=== PATIENT | female | born 1985 | race Caucasian/White ===

== ENCOUNTER 2016-05-06 11:56 | Day surgery (SDC) | payer OTHER ==
[2016-05-06] VITALS (13 sets, daily range): BP systolic 81–168; BP diastolic 58–101; PULSE 70–96; RESP 16–22; O2SAT 96–100
[~2016-05-06] VITALS: Ht 165.1 cm; Wt 105.9 kg
[~2016-05-06 11:56] MED LIST: LEVO200T6 PO; OMEP40CA36 PO; SERT100T PO; TRIA1TAB3 PO
--- NOTE | 2016-05-06 12:24 | ED.REPORT ---
HPI-General Illness Date of Service May 06, 2016 ED Provider: Dixon Anderson MD Pt is a 5 week 30 y/o female w/ a hx of , HTN, Grave's disease, presenting to the ED c/o stabbing RLQ abdominal pain with radiation to the vagina onset today. The patient had an transvaginal US yesterday but they were unable to visualize the fetus. The patient's OB noticed that she had unstable HCG levels and was concerned for an ectopic . She had a tubal ligation in 2003 and a reversal in 2011. She denies N/V/D, fever, chills, CP, SOB. Last meal: cheeseburger at 12:00 Nursing Notes Stated Complaint: ABDOMINAL PAIN Chief Complaint: Female Abdominal Pain Nursing Notes Reviewed: Yes Allergies: Coded Allergies: lamotrigine (Verified Allergy, Severe, rash, 05/06/16) Penicillins (Verified Allergy, Mild, HIVES, 08/31/12) Sulfa (Sulfonamide Antibiotics) (Verified Adverse Reaction, Severe, vomitting, 12/29/15) morphine (Verified Adverse Reaction, Severe, rebound headache, 05/06/16) hydrocodone bitartrate (Verified Adverse Reaction, Intermediate, REBOUND HEADACHE, 08/31/12) Scheduled Levothyroxine (Levothyroxine) 200 Mcg Tablet 200 MCG PO DAILY Omeprazole (Omeprazole) 40 Mg Capsule.dr 40 MG PO DAILY Sertraline HCl (Zoloft) 100 Mg Tablet 100 MG PO DAILY Triamterene/HCTZ 37.5-25 mg (Triamterene/HCTZ 37.5-25 mg) 1 Each Tablet 1 TABLET PO DAILY General Time Seen by MD: 12:16 Chief Complaint Abdominal pain Hx Obtained From: Patient Arrived By: Walk-in Sudden in Onset?: Yes Symptom Duration: Since onset Location: : Abdomen Quality: Painful Severity: Current: Moderate Severity: Maximum: Moderate Past Medical History Past Medical History Hx of migraines Grave's disease Hypertension Past Surgical History x3 Tubal Ligation Tubal Ligation Reversal Family History unknown: adopted Smoking History Never Smoker Social History Alcohol Use: Denies alcohol use Drug Use: Denies drug use Occupation lives with boyfriend, work at [employer] 02/26/2016 Ambulatory Status Independent Review of Systems Full Review of Systems Constitutional: Denies: Chills, Fever GI: Reports: Abdominal pain, Denies: Nausea, Vomiting Complete sys rev & neg: except as marked. Physical Exam Vital Signs Vital Signs Date Time Temp Pulse Resp B/P Pulse Ox O2 Delivery O2 Flow Rate FiO2 05/06/16 13:36 36.4 77 20 143/75 99 Room Air 05/06/16 12:05 36.1 96 16 168/101 100 Room Air Initial VS: Reviewed, Vital signs abnormal Head / Eyes: Atraumatic, Normocephalic, PERRL ENT: Mucous membranes moist, Conjunctiva normal, No scleral icterus Neck: Supple, Full range of motion Respiratory: Breath sounds normal, Clear to auscultation, No respiratory distress Cardiovascular: Regular rate & rhythm, Heart sounds normal, Intact distal pulses Extremities: Vascular intact, Neuro intact, No swelling, No tenderness Skin: Warm, Dry, No cyanosis Neurologic: Alert, Oriented, Nonfocal Psychiatric: Mood/affect normal, Behavior normal, Normal thought content General/Constitutional: Awake, Alert, Cooperative, Not toxic appearing Abdomen: Atraumatic, Soft, No distention, No palpable mass Tenderness/Guarding/Rebound: Positive: Rebound localized (RLQ), Tender RLQ... ( Moderate) Interpretation & Diagnostics Lab Results Interpretation Result Diagram: 05/06/16 1236 05/06/16 1236 Test 05/06/16 12:35 05/06/16 12:36 Urine Color Straw (YELLOW) Urine Appearance Hazy (CLEAR,HAZY) Urine pH 6.0 (5.0-8.0) Urine Specific [place] 1.020 (1.003-1.035) Urine Protein Negativemg/dL (NEG,TRACE) Urine Glucose (UA) Negativemg/dL (NEGATIVE) Urine Ketones Negativemg/dL (NEGATIVE) Urine Occult Blood Negative (NEGATIVE) Urine Nitrite Positive (NEGATIVE) Urine Bilirubin Negative (NEGATIVE) Urine Urobilinogen Normalmg/dL (NORMAL) Urine Leukocyte Esterase Negative (NEGATIVE) Urine RBC 0-2/hpf (0-2) Urine WBC 0-5/hpf (0-5) Urine Epithelial Cells Occasional/hpf (NONE-MOD) Urine Crystals None seen (NONE SEEN) Urine Bacteria Many/hpf (NONE-FEW) Urine Hyaline Casts None/lpf (NONE) Urine Granular Casts None seen (NONE SEEN) Urine Waxy Casts None seen (NONE SEEN) Urine Red Blood Cell Casts None seen (NONE SEEN) Urine White Blood Cell Casts None seen (NONE SEEN) Urine Mucus None seen (None Seen) Urine Trichomonas None seen (NONE SEEN) Urine Yeast None (NONE SEEN) Urinalysis Comment None Urine Culture Reflexed Indicated Hold White Top Tube Received (Received) White Blood Count 12.1th/mm3 (3.8-10.1) Red Blood Count 4.90mil/mm3 (3.90-5.20) Hemoglobin 13.1g/dL (12.0-15.6) Hematocrit 40.6% (35.0-46.0) Mean Corpuscular Volume 82.9fL (81-100) Mean Corpuscular Hemoglobin 26.7pg (27.0-35.0) Mean Corpuscular Hemoglobin Concent 32.3% (32.0-37.0) Red Cell Distribution Width 14.9% (12.3-15.4) Platelet Count 314bil/L (150-400) Sodium Level 137mEq/L (134-144) Potassium Level 3.9mEq/L (3.5-5.2) Chloride Level 100mEq/L (97-108) Carbon Dioxide Level 24mmol/L (18-29) Blood Urea Nitrogen 14mg/dL (6-20) Creatinine 0.55mg/dL (0.57-1.00) Estimat Glomerular Filtration Rate 183mL/min (>59) Glucose Level 111mg/dL (60-99) Calcium Level 9.0mg/dL (8.5-10.1) Total Bilirubin 0.2mg/dL (0.0-1.2) Aspartate Amino Transf (AST/SGOT) 25U/L (0-50) Alanine Aminotransferase (ALT/SGPT) 26U/L (0-32) Alkaline Phosphatase 80U/L (25-150) Total Protein 7.2g/dL (6.4-8.4) Albumin 3.9g/dL (3.4-5.0) HCG Beta Subunit 1530mIU/mL Re-Eval/Medical Decision Med Decision/Clinical Course Pt is a 5 week 30 y/o female w/ a hx of , HTN, Grave's disease, presenting to the ED c/o stabbing RLQ abdominal pain with radiation to the vagina onset today. The patient had an transvaginal US yesterday but they were unable to visualize the fetus. Upon arrival the patient is afebrile and hemodynamically stable. 2 large-bore IVs were obtained and blood was sent for type and screen. Labs notable as below: CBC: Leukocytosis of 12.1, HCT of 40.1 CMP: HCG of 1530 which is decreased from prior in the day, unremarkable Rh+ Transvaginal ultrasound obtained as below: 1. Thickened endometrial complex with trace amount of endometrial fluid and a 2 mm cystic structure. Although findings may be related to a very early intrauterine gestation, decidual cast from an ectopic cannot be excluded. 2. Complex right adnexal mass measuring up to 5.5 cm with a small amount of hemorrhagic-appearing free fluid within the pelvis. Ectopic cannot be excluded and close clinical correlation is recommended. Patient discussed with TRADE CLERK. At this time high suspicion for possible ectopic . They would like to take the patient directly to the operating room for explortatory laparotomy. The patient was transferred in stable condition to the care of TRADE CLERK. Acute appendicitis/ovarian torsion remains a possibility as well at this time though overall clinical picture most concerning for ectopic . Time of Eval: 13:37 Re-Evaluation/Progress Note: Pt rechecked. Pt informed of need for admission. Pt understands and agrees with plan for admission. All questions addressed. Consultation : Referral / Consult Name: Amina French MD Call Returned at: 13:33 Circulation Director: Will see patient, Agrees with eval, Agrees with plan, Accepts admit Note: Consulted with the patient's OB in person. Recommends admit for possible exploratory laparoscopy if ectopic is not visible on ultrasound as it was not yesterday. Counseled Regarding: Diagnosis, Lab results, Need for admission Discharge & Departure Primary Impression: Ectopic Additional Impression: Right lower quadrant abdominal pain Disposition: ADMITTED TO HOSPITAL Discharge Condition All VS Reviewed: Yes Condition: Stable Referrals: Amina French MD (PCP) Crit Care Except Billable Proc Time Spent: 75-104 minutes Services Performed: Patient management by me, Time spent at bedside, Reviewing test results, Reviewing imaging, Discussing patient care, Documentation in record, Time with fam/surrogate Scribe Attestation Portions of this note were transcribed by Steve Quick. IDr. Anderson personally performed the history, physical exam and medical decision-making; I reviewed and confirmed the accuracy of the information in the transcribed note. Signed by Tanya Shelley, 05/06/16 1330 copies to: Amina French MD, Beck O MD May 06, 2016 12:23 STEVE QUICK May 06, 2016 12:42
[2016-05-06] MEDS ORDERED: 0.9% Sodium Chloride 1,000 ML IV ONE (12:39)
[2016-05-06 12:55] LABS: Mean Corpuscular Hemoglobin 26.7 pg (27.0-35.0); Mean Corpuscular Volume 82.9 fL (81-100)
[2016-05-06 13:54] LABS: APPEARANCE,URINE HAZY (CLEAR,HAZY); COLOR,URINE STRAW (YELLOW); OCCULT BLOOD,URINE NEGATIVE (NEGATIVE); UROBILINOGEN,URINE NORMAL (NORMAL)
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
[2016-05-06] MEDS ORDERED: fentaNYL-PF 50 mCg/mL 2 mL Inj ONE ×2 (14:22→17:01)
[2016-05-06] MEDS ORDERED: Dexamethasone 4 mg/mL Inj ONE (14:22)
[2016-05-06] MEDS ORDERED: Ondansetron 2 mg/mL 2 mL Inj ONE (14:22)
[2016-05-06] MEDS ORDERED: Propofol 10,000 mCg/mL 20 mL Inj ONE (14:22)
[2016-05-06] MEDS ORDERED: MetoCLOpramide 5 mg/mL 2 mL Inj ONE (14:22)
[2016-05-06] MEDS ORDERED: Rocuronium 10 mg/mL 5 mL Inj ONE (14:22)
[2016-05-06] MEDS ORDERED: Glycopyrrolate 0.2 mg/mL 5 mL Inj ONE (14:22)
[2016-05-06] MEDS ORDERED: Neostigmine 1 mg/mL 5 mL Inj ONE (14:22)
[2016-05-06] MEDS ORDERED: DEXTROSE 5% IV STA (14:31)
[2016-05-06] MEDS ORDERED: CEFAZOLIN IV STA (14:31)
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
[2016-05-06] MEDS ORDERED: Lactated Ringer's 500 ML IV PRN (14:33)
[2016-05-06] MEDS ORDERED: Dexamethasone 4 mg/mL Inj IVPUSH PRN (14:35)
[2016-05-06] MEDS ORDERED: Ondansetron 2 mg/mL 2 mL Inj IVPUSH PRN ×2 (14:35→17:15)
[2016-05-06] MEDS ORDERED: MetoCLOpramide 5 mg/mL 2 mL Inj IVPUSH PRN (14:35)
[2016-05-06] MEDS ORDERED: CeFAZolin Inj 3 GM in IV Premix IV ONE (14:35)
[2016-05-06] MEDS ORDERED: Phenylephrine 10,000 mCg/mL Inj IVPUSH PRN (14:35)
[2016-05-06] MEDS ORDERED: EPHEDrine Sulfate 50 mg/mL Inj IVPUSH PRN (14:35)
[2016-05-06] MEDS ORDERED: Lactated Ringer's 1,000 ML IV ONE (14:37)
[2016-05-06] MEDS ORDERED: Bupivacaine-MPF 0.5% W/EPI 30 mL Inj INFILTRATE ONE (15:27)
--- NOTE | 2016-05-06 16:10 | DRSVH ---
PROCEDURE: US PELVIC SONOGRAM + TRANSVAGINAL SONOGRAM INDICATIONS: Ectopic? TECHNIQUE: Real-time scanning was performed of the pelvic organs, with image documentation. Additio nal endovaginal scanning was necessary due to incomplete visualization of the adnexal and endometrial structures by transabdominal scanning. COMPARISON: [facility], US, US PELVIC+TRANSVAG, 05/05/2016, 8:12. FINDINGS: (Orthogonal measurements) Uterus size: 8.72 cm, 5.09 cm, 6.06 cm Endometrium thickness: 1.71 cm Right ovary size: No identified Left ovary size: 3.08 cm, 2.07 cm, 1.83 cm Transabdominal Scanning: Limited scanning through the kidneys shows no hydronephrosis. No pathologi c free abdominal or pelvic fluid. Endovaginal Scanning: Uterus: Uterus is normal in size and appearance. Endometrium is thickened. Trace endometrial fluid redemonstrated. A 2 mm cystic structure is seen on today's exam. Posterior subserosal fibroid alva uring roughly 2.2 cm. Ovaries: Normal left ovary. Complex mass within the right adnexa measuring roughly 5.5 x 4.9 cm. T here is a small amount of hemorrhagic-appearing free fluid within the pelvis. IMPRESSION: 1. Thickened endometrial complex with trace amount of endometrial fluid and a 2 mm cystic structure. Although findings may be related to a very early intrauterine gestation, decidual cast from an ecto pic cannot be excluded. 2. Complex right adnexal mass measuring up to 5.5 cm with a small amount of hemorrhagic-appearing fr ee fluid within the pelvis. Ectopic cannot be excluded and close clinical correlation is r ecommended. Dictated by: Jm Dickerson RRA Interpreted: Negrita Sen MD on 05/06/2016 at 14:47 Transcribed by: STEPHANIE on 05/06/2016 at 19:10 Approved by: Negrita Sen MD, PhD on 05/06/2016 at 16:45
[2016-05-06] MEDS: Lactated Ringer's 1,000 ML IV SCH ×2 (16:34→17:32)
[2016-05-06] MEDS ORDERED: Bupivacaine 0.5%/EPI 50 mL Inj INFILTRATE ONE (16:41)
--- NOTE | 2016-05-06 17:11 | PCM.SURGOP ---
Surgical Operative Report Date of Service: May 06, 2016 Pre Operative Diagnosis Ectopic Post Operative Diagnosis 1. Right Fallopian Tube Ectopic 2. Dense pelvic and abdominal adhesions 3. Hemoperitoneum Procedure: 1. Laparoscopic right salpingectomy 2. Evacuation of hemoperitoneum 3. Lysis of adhesions Surgeon and [employer]: Surgeon: Amina French MD Assistants: Maddie Reyes was necessary for this procedure to help with exposure and to complete the procedure. Indication for Procedure Patient is a 30-year-old 6 para 4 with a history of a tubal reversal procedure, 3 previous deliveries with inappropriately rising quantitative hCG levels and an ultrasound showing no intrauterine . She presents to the ER with sudden onset of severe right lower quadrant pain. Findings: Intraoperative findings showing a moderate sized hemoperitoneum with a large amount of blood clots surrounding the fragmented right fallopian tube and ovary. There were dense omental adhesions along the anterior abdominal wall extending down to the umbilicus over to the right pelvic sidewall. There were dense adhesions of the bladder and peritoneum to the lower uterine segment. In addition there were more dense adhesions of the left fallopian tube and ovary to the sigmoid colon. The left fallopian tube did not appear to be attached to the cornual region and was torsed and involved in dense pelvic adhesions. The posterior cul-de-sac was free of any adhesions. The upper abdomen appeared to be free of adhesions with normal-appearing appendix and liver. Procedure Details Patient was taken to the operating room where her general anesthesia was obtained without difficulty. She was placed in the lithotomy position in the [facility] and prepared and draped in normal sterile fashion. The umbilicus was injected with 10 mL's of 0.5% Marcaine with epinephrine. A varies needle was inserted and the base the patient's umbilicus and a needle aspirate and water drop test were negative and confirmatory respectively. A pneumoperitoneum was obtained with CO2 gas to a pressure of 15 mmHg. A 5 mm skin incision was made at the base patient umbilicus and a 5 mm Applied balloon trocar was inserted directly into the patient's peritoneal cavity using the Visiport function of this trocar. At this point the above-noted findings were appreciated. A left lower quadrant port site was then marked off injected with 0.5% Marcaine with epinephrine. And a 5 mm blunt trocar was inserted under direct visualization. A right lower quadrant port site was marked off and an 11 mm Applied balloon trocar was inserted under direct visualization. This trocar site was difficult to see secondary to omental adhesions. The patient was then placed in Trendelenburg and the hemoperitoneum was evacuated. The right fragments of fallopian tube and clot were removed with a Thunderbeat cautery device. Some of the pelvic adhesions surrounding the ovary were taken down with a Thunderbeat cautery device to help visualize the ovary and posterior cul-de-sac. Some omental adhesions were taken down anteriorly surrounding the umbilical port to help with visualization. The remaining surveyed abdomen was noted as above. The pelvis was then irrigated copiously with normal saline. All specimens removed from patient's peritoneal cavity and the pneumoperitoneum was released. The right lower quadrant fascia was not reapproximated secondary to patient's body habitus along with dense omental adhesions and poor visualization. All skin incisions were then reapproximated with 4-0 Monocryl in a subcutaneous fashion and Dermabond applied. All lap instrument and needle counts correct times two at the end of the procedure and the patient was taken to recovery room awake and condition. Complications There were no periprocedural complications identified. Surgical Specimen Removed: Yes Specimen sent to Pathology: Yes Surgical Specimen description: Ectopic with associated clot and fallopian tube. Anesthetic Plan: GA Grafts, Implants: None Output, Estimated Blood Loss: 300 Blood Administration during briones: No Catheters: None Post Operative Plan Plan to discharge patient home when awake and stable. Amina French MD May 06, 2016 17:11
[2016-05-06] MEDS: fentaNYL-PF 50 mCg/mL 2 mL Inj IVPUSH PRN ×2 (17:13→17:22)
--- NOTE | 2016-05-06 17:14 | PCM.DIGYN ---
Surgical Discharge Instruction Dates of Hospitalization Date of Hospital Admission 05/06/2016 Providers Admitting Physician: Primary Care Physician: Jaylin Ugarte Attending Physician: Amina French MD Diagnosis at Time of Discharge Diagnosis at time of discharge 1. Right fallopian tube ectopic 2. Dense pelvic and abdominal adhesions Post-operative diagnosis 1. Right Fallopian Tube Ectopic 2. Dense pelvic and abdominal adhesions 3. Hemoperitoneum Problems: (1) Ectopic Status: Acute ICD Code: O00.9 Diet Discharge Diet: No restrictions Activity Discharge Activity-General: Try not to overdue, Be up and about, Balance rest and activity, No lifting >10 pounds for 4-6 weeks, No driving while taking narcotic, Other (nothing per vagina for two weeks) Dressing and Incisional Care Hygiene: May shower, Wash incision with soap & water, DO NOT soak incision under water, NO bathtub, hot tub or whirlpool (for two weeks) Follow Up Plan Follow-up Provider (F9): Amina French MD Follow-up appointment: Weeks (2) Call your provider for: Fever, Chills, Shortness of breath, Heavy vaginal bleeding, Increasing pain Additional Information I would like you to continue to have weekly quantitative hCG levels drawn until they are less than 5 to assure that you're ectopic is resolved. Amina French MD May 06, 2016 17:14
[2016-05-06] MEDS ORDERED: oxyCODONE-Acetamin 5-325 mg Tablet PO PRN ×2 (17:15→21:40)
[2016-05-06] MEDS ORDERED: HYDROmorphone 1 mg/mL Inj IVPUSH PRN (17:15)
--- NOTE | 2016-05-10 13:54 | PATH ---
SURGICAL PATHOLOGY Attending Physician:Amina French, CASE STATUS: Signed Out PATIENT NAME: BALJINDER BORGES PID: [id number] : 1985 DATE COLLECTED:05/06/2016 22:49 SPECIMEN: Fallopian Tube, Ectopic CLINICAL HISTORY: RUPTURED EPTOPIC 1). PRODUCTS OF CONCEPTION FINAL DIAGNOSIS: Fallopian Tube: Ectopic . ICD10 O00.1 GROSS DESCRIPTION: The specimen is received in formalin, labeled with the patient's name, sublabeled as products of conception and consists of a fimbriated segment of fallopian tube (length-2.5 cm, diameter-0.4 cm) and a separate piece of red-brown spongy friable tissue (2.0 x 1.3 x 0.8 cm). The fallopian tube has tuttle-nolan smooth shiny serosa and a tuttle-nolan unremarkable lumen. The separate piece of tissue is hemorrhagic. No parts are identified. Section code: (A) fimbria, bivalved; (B) separate tissues, serially sectioned. Specimen entirely submitted. 05/07/16 ICD-9 CODES: CPT CODES: 1: 41960 Electronically Signed Out Armen Cordoba MD [facility] Pathology [facility] [address], [place] [address] Technical component performed at [facility], [address] [place] [address] Ave[address], [place], [address]
== END 2016-05-06 23:59 | disposition home or self-care (01) ==
LOC: SED 11:56 → SAS 14:21
PROVIDERS: ATTEND Obstetrics & Gynecology
PROC: 0UB54ZZ Excision of Right Fallopian Tube, Percutaneous Endoscopic Approach (ICD-10-PCS; 2016-05-06)
PROC: 10T24ZZ Resection of Products of Conception, Ectopic, Percutaneous Endoscopic Approach (ICD-10-PCS; principal; 2016-05-06 14:15)
DX: O00.90 Unspecified ectopic pregnancy without intrauterine pregnancy (principal); Z3A.01 Less than 8 weeks gestation of pregnancy; F17.210 Nicotine dependence, cigarettes, uncomplicated; I10 Essential (primary) hypertension; Z87.440 Personal history of urinary (tract) infections; E05.00 Thyrotoxicosis with diffuse goiter without thyrotoxic crisis or storm
CPT/HCPCS: 36415; 59151; 76830; 76856; 80053; 81000; 84702; 85027; 86850; 87077; 87086; 87088; 87186; 96360; 99285; J0690; J1100; J2175; J2405; J2710; J2765; J3010; J7030; J7120

== ENCOUNTER 2016-06-17 15:02 | Emergency (ER) | payer OTHER ==
[~2016-06-17] VITALS: Ht 165.1 cm; Wt 92.3 kg
[2016-06-17 15:33] VITALS: BP 155/102; PULSE 75; RESP 16; O2SAT 100
[2016-06-17 16:08] LABS: BASOPHILS % (AUTO) 0.3 % (0-3); EOSINOPHILS % (AUTO) 3.6 % (0-5); MONOCYTES % (AUTO) 9.1 % (4-12); Mean Corpuscular Hemoglobin 26.9 pg (27.0-35.0); NEUTROPHILS % (AUTO) 60.6 % (40-74); Platelet Count 338 bil/L (150-400)
[2016-06-17 16:32] LABS: TROPONIN T < 0.010 ug/L (0.0-0.011)
[2016-06-17 16:42] LABS: Magnesium 2.2 mg/dL (1.6-2.6)
[2016-06-17 16:51] LABS: APPEARANCE,URINE CLOUDY (CLEAR,HAZY); COLOR,URINE YELLOW (YELLOW); OCCULT BLOOD,URINE SMALL (NEGATIVE); UROBILINOGEN,URINE NORMAL (NORMAL)
--- NOTE | 2016-06-17 17:59 | ED.REPORT ---
HPI-General Illness Date of Service Jun 17, 2016 ED Provider: Dixon Anderson MD The patient is a 30 year old female with history of migraines, Grave's disease, and hypertension, who presents to the emergency department complaining of right facial pain and paresthesias that began suddenly 1 week ago. Since onset her pain has been intermittent. Her pain became more severe last night and she also noticed right-sided facial/head numbness. She describes the numbness as "pins and needles." She has not had similar symptoms in the past. She denies speech changes, vision changes, extremity weakness or numbness, or dental pain. She had a sinus infection last week and noticed: congestion, sinus pressure, and a fever (these symptoms have improved). She denies chills, cough, shortness of breath or chest pain. She is experiencing occasional severe stabbing bouts of pain in the right side of her face last for seconds and causes her to clutch her face before rapidly resolving. Nursing Notes Stated Complaint: PAIN IN ZOROASTRIAN,NUMBNESS,TINGLING ON SIDE OF FACE Chief Complaint: Neuro Symptoms/ Deficits Nursing Notes Reviewed: Yes Allergies: Coded Allergies: lamotrigine (Verified Allergy, Severe, rash, 06/17/16) prochlorperazine (Verified Allergy, Severe, Extrapyramidal Symptoms, ) Penicillins (Verified Allergy, Mild, HIVES, 06/17/16) Sulfa (Sulfonamide Antibiotics) (Verified Adverse Reaction, Severe, vomitting, 06/17/16) morphine (Verified Adverse Reaction, Severe, rebound headache, 06/17/16) hydrocodone bitartrate (Verified Adverse Reaction, Intermediate, REBOUND HEADACHE, 06/17/16) Scheduled Carbamazepine (Carbamazepine) 100 Mg Capsule 100 MG PO BID Levothyroxine (Levothyroxine) 200 Mcg Tablet 200 MCG PO DAILY Omeprazole (Omeprazole) 40 Mg Capsule.dr 40 MG PO DAILY Sertraline HCl (Zoloft) 100 Mg Tablet 100 MG PO DAILY Triamterene/HCTZ 37.5-25 mg (Triamterene/HCTZ 37.5-25 mg) 1 Each Tablet 1 TABLET PO DAILY General Time Seen by MD: 17:50 Chief Complaint Headache Hx Obtained From: Patient Arrived By: Walk-in Sudden in Onset?: Yes Onset Occurred: 1 week ago Symptom Duration: Since onset Location: : Head Quality: Painful Severity: Current: Moderate Severity: Maximum: Moderate Recent Healthcare: No recent doctor visit, No recent hospitalization Similar Sx Previous: No Past Medical History Past Medical History Hx of migraines Grave's disease Hypertension Past Surgical History x3 Tubal Ligation Tubal Ligation Reversal Family History unknown: adopted Smoking History Current Every Day Smoker Social History Alcohol Use: Denies alcohol use Drug Use: Denies drug use Other Social History: Local resident Occupation lives with boyfriend, work at [employer] 02/26/2016 Ambulatory Status Independent Review of Systems Full Review of Systems Constitutional: Denies: Chills, Fever Ears / Nose / Throat: Denies: Mouth pain, Toothache Respiratory: Denies: Non-productive cough, Shortness of breath Cardiovascular: Denies: Chest pain Neurologic: Reports: Headache, Numbness, Denies: Focal weakness, Problem walking, Slurred speech, Unable to speak, Vision change, Weakness Complete sys rev & neg: except as marked. Physical Exam Vital Signs Vital Signs Date Time Temp Pulse Resp B/P Pulse Ox O2 Delivery O2 Flow Rate FiO2 06/17/16 19:59 78 16 100 Room Air 06/17/16 15:33 36.7 75 16 155/102 100 Room Air Initial VS: Reviewed Neck: Supple, Non-tender, Full range of motion Respiratory: Breath sounds normal, Clear to auscultation, No respiratory distress Cardiovascular: Regular rate & rhythm, Heart sounds normal, Intact distal pulses Abdomen / GI: Soft, Non-tender, No guarding, No rebound, No distention Lymphatic: No lymphadenopathy Extremities: Vascular intact, Neuro intact, No swelling, No tenderness Skin: Warm, Dry, No cyanosis Psychiatric: Mood/affect normal, Behavior normal, Normal thought content General/Constitutional: Awake, Alert, Cooperative Head / Eyes: Atraumatic, Normocephalic, PERRL, EOMI, No scleral icterus, Conjunctiva NL ENT: Atraumatic, Airway patent, Mucous membranes moist, Pharynx NL, No peritonsillar abscess, No pooling of secretions, Tympanic membs NL, Ext aud canal NL, Mastoid area NL, Nose exam NL, No sinus tenderness, No facial swelling Uvula is midline. Normal nasal turbinates. Neurologic: Oriented X3, Speech NL, No motor deficits, Cerebellar NL, Memory NL No facial droop. Normal facial symmetry. She has subjective sensory deficit to light touch about the right side of her face. Interpretation & Diagnostics Lab Results Interpretation Result Diagram: 06/17/16 1555 06/17/16 1555 Test 06/17/16 15:55 06/17/16 16:42 White Blood Count 9.6th/mm3 (3.8-10.1) Red Blood Count 4.94mil/mm3 (3.90-5.20) Hemoglobin 13.3g/dL (12.0-15.6) Hematocrit 41.0% (35.0-46.0) Mean Corpuscular Volume 83.0fL (81-100) Mean Corpuscular Hemoglobin 26.9pg (27.0-35.0) Mean Corpuscular Hemoglobin Concent 32.4% (32.0-37.0) Red Cell Distribution Width 13.8% (12.3-15.4) Platelet Count 338bil/L (150-400) Neutrophils (%) (Auto) 60.6% (40-74) Lymphocytes (%) (Auto) 26.1% (14-46) Monocytes (%) (Auto) 9.1% (4-12) Eosinophils (%) (Auto) 3.6% (0-5) Basophils (%) (Auto) 0.3% (0-3) Sodium Level 137mEq/L (134-144) Potassium Level 3.8mEq/L (3.5-5.2) Chloride Level 97mEq/L (97-108) Carbon Dioxide Level 26mmol/L (18-29) Blood Urea Nitrogen 16mg/dL (6-20) Creatinine 0.72mg/dL (0.57-1.00) Estimat Glomerular Filtration Rate 134mL/min (>59) Glucose Level 101mg/dL (60-99) Calcium Level 9.5mg/dL (8.5-10.1) Magnesium Level 2.2mg/dL (1.6-2.6) Total Bilirubin 0.3mg/dL (0.0-1.2) Aspartate Amino Transf (AST/SGOT) 29U/L (0-50) Alanine Aminotransferase (ALT/SGPT) 37U/L (0-32) Alkaline Phosphatase 88U/L (25-150) Troponin T < 0.010ug/L (0.0-0.011) Total Protein 8.0g/dL (6.4-8.4) Albumin 4.4g/dL (3.4-5.0) Hold White Top Tube Received (Received) Urine Color Yellow (YELLOW) Urine Appearance Cloudy (CLEAR,HAZY) Urine pH 6.0 (5.0-8.0) Urine Specific [place] 1.020 (1.003-1.035) Urine Protein Negativemg/dL (NEG,TRACE) Urine Glucose (UA) Negativemg/dL (NEGATIVE) Urine Ketones Negativemg/dL (NEGATIVE) Urine Occult Blood Small (NEGATIVE) Urine Nitrite Negative (NEGATIVE) Urine Bilirubin Negative (NEGATIVE) Urine Urobilinogen Normalmg/dL (NORMAL) Urine Leukocyte Esterase Trace (NEGATIVE) Urine RBC 0-2/hpf (0-2) Urine WBC 6-10/hpf (0-5) Urine Epithelial Cells Many/hpf (NONE-MOD) Urine Crystals None seen (NONE SEEN) Urine Bacteria Few/hpf (NONE-FEW) Urine Hyaline Casts Rare/lpf (NONE) Urine Granular Casts Occasional (NONE SEEN) Urine Waxy Casts None seen (NONE SEEN) Urine Red Blood Cell Casts None seen (NONE SEEN) Urine White Blood Cell Casts None seen (NONE SEEN) Urine Mucus None seen (None Seen) Urine Trichomonas None seen (NONE SEEN) Urine Yeast None (NONE SEEN) Urinalysis Comment Amorphous sediment Urine Culture Reflexed Indicated Re-Eval/Medical Decision Med Decision/Clinical Course Patient is a 30-year-old female who presents with 1 week of right facial pain/ needle sensation, paresthesias accompanied by intermittent bouts of severe right facial pain that last for seconds coming on rapidly and subsequently resolving rapidly. While she has had a minor upper respiratory infection/ sinusitis recently this has completely resolved and she has had no fevers, other associated neurologic symptoms, drainage from her nose or neck pain/ stiffness. She denies any headache or altered mental status. Overall presentation actually quite classic for trigeminal neuralgia. I considered mass lesion as an underlying cause of her trigeminal neuralgia and I cannot entirely rule this out it seems unlikely. While she has had a recent sinus infection this was minor and completely resolved and I suspicion for abscess based upon her presentation and examination is extremely low. No evidence of stroke and her neurologic examination is quite normal. She has had no meningismus and my suspicion for meningitis is very low. I started her on a low dose of carbamazepine and referred her to neurology. While she may require MRI I do not feel that this is emergently indicated. Follow-up concussion precautions were reviewed in detail and she was discharged in good condition. Source of Hx: Old records Time of Eval: 19:47 Re-Evaluation/Progress Note: Discussed exam findings, diagnosis, and plan for discharge. Counseled Regarding: Diagnosis, Need for follow-up, When/why to return to ED Discharge & Departure Primary Impression: Trigeminal neuralgia Additional Impressions: Right facial pain Right facial numbness Disposition: Home Discharge Condition All VS Reviewed: Yes Condition: Stable Patient Instructions: Trigeminal Neuralgia (ED) Additional Instructions: Thank you for seeking care at the emergency room. It is difficult for us to make definitive diagnoses in the ED but we believe that you are experiencing symptoms due to trigeminal neuralgia. Our primary goal today in the ED was to evaluate you for any life-threatening conditions. Your evaluation was reassuring. You will be discharged with a prescription for carbamazepine. Take as directed. You should follow-up with a neurologist in the next week for re-evaluation. We have given you a referral to Dr. Bill. Call Monday for an appointment. You should return to the ED immediately if you develop increased pain, speech changes, visual changes, focal weakness, fevers, worsening numbness/tingling, confusion, vomiting, or any other concerning signs or symptoms. Thank you for letting us partake in your care today. Referrals: Jaylin Ugarte (PCP) Jane Bill MD Attestation Portions of this note were transcribed by Susan Lujan. I, Dr. Anderson personally performed the history, physical exam and medical decision-making; I reviewed and confirmed the accuracy of the information in the transcribed note. Signed by: Tanya Deluna, 06/17/2016 and 1999. copies to: Jane Bill MD; Jaylin Ugarte Beck O MD Jun 17, 2016 17:59 Susan Lujan Jun 17, 2016 18:12
[2016-06-17] MEDS ORDERED: CARB100C8 PO (19:47)
[2016-06-17 19:59] VITALS: PULSE 78; RESP 16; O2SAT 100
== END 2016-06-17 20:00 | disposition home or self-care (01) ==
LOC: SED 15:02
DX: G50.0 Trigeminal neuralgia (principal); G50.1 Atypical facial pain; R20.2 Paresthesia of skin; E05.00 Thyrotoxicosis with diffuse goiter without thyrotoxic crisis or storm; I10 Essential (primary) hypertension; F17.200 Nicotine dependence, unspecified, uncomplicated; Z88.0 Allergy status to penicillin; Z88.2 Allergy status to sulfonamides; Z88.5 Allergy status to narcotic agent; Z88.8 Allergy status to other drugs, medicaments and biological substances